=== PATIENT | female | born 1970 | race Caucasian/White ===

== ENCOUNTER 2022-03-08 15:19 | Outpatient (CLI) | payer BC | END 2022-03-08 15:20 | disposition home or self-care (01) | LOC: BICULT 15:19 | PROVIDERS: ATTEND Internal Medicine Endocrinology, Diabetes & Metabolism | DX: E04.8 Other specified nontoxic goiter (principal); R22.0 Localized swelling, mass and lump, head | CPT/HCPCS: 76536 ==

== ENCOUNTER 2022-04-18 08:51 | Outpatient (CLI) | payer BC | END 2022-04-18 08:52 | disposition home or self-care (01) | LOC: BICMAMMO 08:51 | PROVIDERS: ATTEND Obstetrics & Gynecology | DX: N63.10 Unspecified lump in the right breast, unspecified quadrant (principal) | CPT/HCPCS: G0279 ==